=== PATIENT | male | born 1995 | race Caucasian/White ===

== ENCOUNTER 2024-12-20 08:29 | Emergency (ER) | payer OTHER, SELFPAY ==
--- NOTE | 2024-12-20 09:14 | W.ED.ABDPA2 ---
HPI - Abdominal Pain General: Chief Complaint: Abdominal Pain Stated Complaint: abdominal pain, nausea Time Seen by Provider: 12/20/24 08:47 History of Present Illness: 29-year-old male presents emergency room with complaints of abdominal pain and nausea. 1 episode of vomiting this morning denies any any hematemesis coffee-ground emesis. He denies any dysuria urgency or frequency has not noticed anything that aggravates or relieves it. Associated Symptoms: Reports nausea; Denies chills, coffee ground emesis, dysuria, fever(s), hematochezia, hematemesis, melena and vomiting Related Data Previous Rx's ?Medication ?Instructions ?Recorded promethazine 25 mg tablet 25 mg PO Q6H PRN nausea and 12/20/24 vomiting #20 tabs Allergies Allergy/AdvReac Type Severity Reaction Status Date / Time amphetamine (From Adderall) Allergy Unknown Verified 12/20/24 09:31 dextroamphetamine (From Allergy Unknown Verified 12/20/24 09:31 Adderall) Review of Systems Const: Denies: fever(s) or chills Card: Denies: chest pain Resp: Denies: dyspnea GI: Reports: abdominal pain and nausea; Denies: vomiting, hematemesis, coffee ground emesis, hematochezia or melena : Denies: dysuria, urinary frequency or urinary urgency Musc: Denies: neck pain or back pain Skin/Breast: Denies: rash Physical Exam Const: GENERAL APPEARANCE: cooperative ORIENTATION/CONSCIOUSNESS: Yes awake, Yes oriented to person, Yes oriented to place and Yes oriented to time HENMT: COMMON NORMALS: normocephalic, atraumatic and hearing grossly normal bilaterally HEAD & SCALP: normocephalic and atraumatic Resp: COMMON NORMALS: normal respiratory effort, No retractions, No use of accessory muscles and clear to auscultation bilaterally AUSCULTATION: clear to auscultation bilaterally Cardio: COMMON NORMALS: regular rate, regular rhythm and No murmurs present (Cardio) RATE: regular rate RHYTHM: regular rhythm GI: COMMON NORMALS: Soft to palpation and No hepatosplenomegaly present AUSCULTATION: Yes normoactive bowel sounds PALPATION: Yes Soft to palpation, No Tenderness to palpation present (GI), No Guarding due to palpation present (GI) and Yes No hepatosplenomegaly present Extremity: COMMON NORMALS: normal to inspection, capillary refill normal, no clubbing, cyanosis or edema, no calf tenderness and no pedal edema Neuro: SENSORIUM/ORIENTATION: Yes oriented to person, Yes oriented to place and Yes oriented to time Skin: COMMON NORMALS: no rashes or lesions noted GENERAL SKIN EXAM: no rashes or lesions noted Course Vital Signs: Vital signs: Vital Signs Temperature 98.2 F 12/20/24 09:23 Pulse Rate 54 L 12/20/24 12:07 Respiratory Rate 18 12/20/24 09:23 Blood Pressure 129/71 12/20/24 12:07 Pulse Oximetry 97 12/20/24 12:07 Oxygen Delivery Me thod Room Air 12/20/24 09:23 MDM - Abdominal Pain Medical Decision Making CT laboratory test unremarkable no leukocytosis abdominal exam benign. Discussed results with patient discharged with antiemetics. GlucoDock 24 to 48 hours advance as tolerated Medical Records I reviewed the patient's medical records. Lab Data I reviewed the patient's lab results. 12/20/24 09:25 12/20/24 09:25 Labs/Radiology: Radiology Impressions Abdomen/Pelvis CT 12/20/24 10:34 IMPRESSION: No acute findings. Laboratory Results WBC 8.25 10^3/uL (3.29-11.43) 12/20/24 09:25 RBC 5.82 10^6/uL (3.85-5.65) H 12/20/24 09:25 Hgb 16.70 g/dL (11.27-16.99) 12/20/24 09:25 Hct 49.8 % (37-53) 12/20/24 09:25 MCV 85.6 fl (82-101) 12/20/24 09:25 MCH 28.7 pg (27-33) 12/20/24 09: MCHC 33.5 g/dL (30-55) 12/20/24: RDW 12.9 % (12.1-15.1) 12/20/24 09:25 Plt Count 225 10^3/cmm (157-399) 12/20/24 09:25 MPV 10.4 fL (7.4-10.4) 12/20/24 09:25 Neut % (Auto) 71.9 % 12/20/24 09:25 Lymph % (Auto) 18.5 % 12/20/24 09:25 [place] % (Auto) 6.3 % 12/20/24 09:25 Eos % (Auto) 2.5 % 12/20/24:25 Baso % (Auto) 0.7 % 12/20/24:25 Neut # (Auto) 5.92 10^3/uL (1.8-7.7) 12/20/24:25 Lymph # (Auto) 1.5 10^3/uL (0.8-4.8) 12/20/24:25 [place] # (Auto) 0.5 10^3/uL (0.2-0.9) 12/20/24: Eos # (Auto) 0.2 10^3/uL (0.0-0.8) 12/20/24: Baso # (Auto) 0.1 10^3/uL (0.0-0.1) 12/20/24: Nucleated RBC % (auto) 0 % 12/20/24: Nucleated RBCs # 0.0 /100WBC 12/20/24 09:25 Sodium 141 mmol/L (136-145) 12/20/24 09:25 Potassium 4.2 mmol/L (3.5-5.1) 12/20/24:25 Chloride 103 mmol/L (98-107) 12/20/24 09:25 Carbon Dioxide 26 mmol/L (22-29) 12/20/24 09:25 Anion Gap 16.2 (5-19) 12/20/24:25 BUN 14 mg/dL (6-20) 12/20/24 09:25 Creatinine 0.9 mg/dL (0.7-1.2) 12/20/24 09:25 GFR Calculation 98.4 mL/min (90-130) 12/20/24:25 Glucose 98 mg/dL (65-115) 12/20/24:25 Calculated Osmolality 292 mOsm/kg (285-295) 12/20/24:25 Calcium 9.6 mg/dL (8.5-10.5) 12/20/24 09:25 Total Bilirubin 0.4 mg/dL (0.15-1.2) 12/20/24:25 AST 19 U/L (0-40) 12/20/24 09:25 ALT 18 U/L (0-41) 12/20/24 09:25 Alkaline Phosphatase 97 U/L (40-130) 12/20/24 09:25 Total Protein 7.4 g/dL (6.6-8.7) 12/20/24 09:25 Albumin 4.2 g/dL (3.5-5.2) 12/20/24 09: Globulin 3.2 g/dL (1.3-4.6) 12/20/24 09:25 Lipase 32 U/L (13-60) 12/20/24 09:25 Urine Color Dark yellow (Yellow) A 12/20/24 09: Urine Appearance Cloudy (CLEAR) A 12/20/24 09: Urine pH 5.5 (5-7) 12/20/24 09:33 Ur Specific [place] 1.027 (1.005-1.030) 12/20/24 09:33 Urine Protein Trace (Negative) A 12/20/24 09:33 Urine Glucose (UA) Negative (Normal) 12/20/24 09:33 Urine Ketones Trace (Negative) 12/20/24 09:33 Urine Blood Negative (Negative) 12/20/24 09:33 Urine Nitrate Negative (Negative) 12/20/24 09:33 Urine Bilirubin Negative (Negative) 12/20/24 09:33 Urine Urobilinogen 1.0 mg/dL (Negative) 12/20/24 09:33 Ur Leukocyte Esterase Negative (Negative) 12/20/24 09:33 Urine RBC 0-2 /hpf (0-2) 12/20/24 09:33 Urine WBC 0-5 /hpf (0-5) 12/20/24 09:33 Ur Squamous Epith Cells 0-5 /hpf (0-5) 12/20/24 09:33 Amorphous Sediment Not Reportable 12/20/24 09: Urine Bacteria None seen /hpf (NONE) 12/20/24 09: Hyaline Casts 4.95 /lpf 12/20/24 09:33 All radiology interpretation(s) finalized by discharge Discharge Plan Discharge Patient Disposition: Home Clinical Impression: Gastroenteritis Condition: Stable Prescriptions: New promethazine 25 mg tablet 25 mg PO Q6H PRN (Reason: nausea and vomiting) Qty: 20 0RF Discharge Orders: Discharge ED (Routine); Ordered 12/20/24 Ordered By: Sebastian Benson Discharge Diet: Clear Liquid Discharge Activity: Increase activity as tolerated Patient Instructions: Clear Liquid Diet (ED), Gastroenteritis (ED), Opioid Safety, Pain Management Activity Restrictions/Additional Instructions: Thank you for choosing [facility] for your healthcare needs today. It is very important that you follow up as instructed or that you return to the Emergency Department should you have concerns or if your condition changes or worsens in any way. You are seen emergency room for abdominal pain. Your white count was normal laboratory test unremarkable CT of abdomen unremarkable. Suspect you have gastroenteritis recommend that you follow a clear liquid diet for the next 24 to 48 hours and advance as tolerated you are also given promethazine to use as needed. Stand Alone Forms: Work/School Release Print Language: Uzbek Coding Level of Care Code ED Director Of Field Service for Leanne Briggs
[2024-12-20 09:23] VITALS: BP 126/76; PULSE 59; RESP 18; TEMP 36.8; O2SAT 98; BMI 20.9
[2024-12-20] MEDS: sodium chloride 0.9% 1,000 ML 999 ML IV (09:32)
[2024-12-20 09:33] LABS: Basophils # 0.1 10^3/uL (0.0-0.1); Basophils % 0.7 %; Eosinophils # 0.2 10^3/uL (0.0-0.8); Eosinophils % 2.5 %; Hematocrit 49.8 % (37-53); Lymphocytes # 1.5 10^3/uL (0.8-4.8); Lymphocytes % 18.5 %; Mean Corpuscular HGB Conc 33.5 g/dL (30-55); Mean Corpuscular Hemoglobin 28.7 pg (27-33); Mean Corpuscular Volume 85.6 fl (82-101); Mean Platelet Volume 10.4 fL (7.4-10.4); Monocytes # 0.5 10^3/uL (0.2-0.9); Monocytes % 6.3 %; Neutrophils # 5.92 10^3/uL (1.8-7.7); Neutrophils % 71.9 %; Nucleated Red Blood Cells % 0 %; Platelet Count 225 10^3/cmm (157-399); Red Blood Count 5.82 10^6/uL (3.85-5.65); Red Cell Distribution Width 12.9 % (12.1-15.1); White Blood Count 8.25 10^3/uL (3.29-11.43)
[2024-12-20] MEDS: ondansetron 2 mg/ML SDV 2 mL 4 MG IVP (09:36)
[2024-12-20 09:48] LABS: Bilirubin Urine Negative (Negative); Blood Urine Negative (Negative); Glucose Urine UA Negative (Normal); Ketones Urine Trace (Negative); Leukocyte Esterase Urine Negative (Negative); Nitrate Urine Negative (Negative); Protein Urine Trace (Negative); Specific Gravity, Urine 1.027 (1.005-1.030); Urine Appearance Cloudy (CLEAR); Urine Color Dark Yellow (Yellow); pH Urine 5.5 (5-7)
[2024-12-20 09:53] LABS: Alanine Aminotransferase 18 U/L (0-41); Albumin Level 4.2 g/dL (3.5-5.2); Alkaline Phosphatase 97 U/L (40-130); Anion Gap 16.2 (5-19); Aspartate Amino Transferase 19 U/L (0-40); Blood Urea Nitrogen 14 mg/dL (6-20); Calcium 9.6 mg/dL (8.5-10.5); Carbon Dioxide 26 mmol/L (22-29); Chloride 103 mmol/L (98-107); Creatinine Clr Calc Pharmacy 104.0661; Globulin 3.2 g/dL (1.3-4.6); Glomerular Filtration Rate 98.4 mL/min (90-130); Glucose 98 mg/dL (65-115); Lipase 32 U/L (13-60); Osmolality Calculated 292 mOsm/kg (285-295); Potassium 4.2 mmol/L (3.5-5.1); Sodium 141 mmol/L (136-145); Total Bilirubin 0.4 mg/dL (0.15-1.2); Total Protein 7.4 g/dL (6.6-8.7)
[2024-12-20 09:53] LABS: Add Urine Microscopic? YES; Bacteria Urine None Seen /hpf; Hyaline Casts Urine 4.95 /lpf; RBC Urine 0-2 /hpf (0-2); Squamous Epithelial Cell Urine 0-5 /hpf (0-5); Universal Test for UA Present (0); WBC Urine 0-5 /hpf (0-5)
--- NOTE | 2024-12-20 10:34 | CTR_ITS ---
PROCEDURE INFORMATION: Exam: CT Abdomen And Pelvis With Contrast Exam date and time: 12/20/2024 10:43 AM Age: 29 years old Clinical indication: Nausea and vomiting; Abdominal pain; Generalized; Additional info: Abd pain TECHNIQUE: Imaging protocol: Computed tomography of the abdomen and pelvis with contrast. Radiation optimization: All CT scans at this facility use at least one of these dose optimization techniques: automated exposure control; mA and/or kV adjustment per patient size (includes targeted exams where dose is matched to clinical indication); or iterative reconstruction. Contrast material: OMNI 350; Contrast volume: 100 ml; Contrast route: INTRAVENOUS (IV); COMPARISON: No relevant prior studies available. RADIATION DOSE METRICS: Total DLP (mGy-cm): 336.99 FINDINGS: Liver: Normal. No mass. Gallbladder and biliary ducts: Normal. No calcified stones. No ductal dilation. Pancreas: Normal. No ductal dilation. Spleen: Normal. No splenomegaly. Adrenal glands: Normal. No mass. Kidneys and ureters: Normal. No hydronephrosis. Stomach and bowel: Unremarkable. No obstruction. No mucosal thickening. Appendix: No evidence of appendicitis. Intraperitoneal space: Unremarkable. No free air. No significant fluid collection. Vasculature: Unremarkable. No abdominal aortic aneurysm. Lymph nodes: Unremarkable. No enlarged lymph nodes. Urinary bladder: Unremarkable as visualized. Reproductive: Unremarkable as visualized. Bones/joints: Unremarkable. No acute fracture. Soft tissues: Unremarkable. CT/CT abdomen pelvis w con* [id number] IMPRESSION: No acute findings.
[2024-12-20] MEDS: iohexol 350 mg/mL 500 mL Btl (per mL) IV (10:44)
[2024-12-20 12:07] VITALS: BP 129/71; PULSE 54; O2SAT 97
== END 2024-12-20 12:08 | disposition home or self-care (01) ==
PROVIDERS: Emergency Provider Family Medicine
DX: K52.9 Noninfective gastroenteritis and colitis, unspecified (principal)
CPT/HCPCS: 36415; 74177; 80053; 81001; 83690; 85025; 96361; 96374; 99285; J2405; J7030

== ENCOUNTER 2025-06-11 12:15 | Emergency (ER) | payer OTHER, SELFPAY ==
[2025-06-11 12:20] VITALS: BP 108/70; PULSE 49; RESP 20; TEMP 36.5; O2SAT 99
--- NOTE | 2025-06-11 12:37 | XR_ITS ---
WS: [email or web address] Exam: XR knee LT 3V* [id number] Date/Time of Exam: 06/11/2025 12:37 PM Reason For Exam: trauma No fracture. The joint compartments are well-maintained. Normal soft tissues. No joint effusion. XR/XR knee LT 3V* [id number] IMPRESSION: 1. Negative LEFT knee.
--- NOTE | 2025-06-11 12:37 | XR_ITS ---
WS: [email or web address] Exam: XR ankle LT min 3V* [id number] Date/Time of Exam: 06/11/2025 12:37 PM Reason For Exam: trauma No fracture. The ankle mortise is equidistant. Normal soft tissues. XR/XR ankle LT min 3V* [id number] IMPRESSION: 1. Normal LEFT ankle.
--- NOTE | 2025-06-11 12:37 | XR_ITS ---
WS: [email or web address] Exam: XR tibia fibula LT 2V [id number] Date/Time of Exam: 06/11/2025 12:37 PM Reason For Exam: trauma No fracture noted. Normal soft tissues. Articular relationships at the knee and ankle appear normal. XR/XR tibia fibula LT 2V [id number] IMPRESSION: 1. Normal LEFT tibia and fibula.
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
[2025-06-11 12:49] LABS: Hematocrit 46.6 % (37-53); Hemoglobin 15.50 g/dL (11.27-16.99); Mean Corpuscular HGB Conc 33.3 g/dL (30-55); Mean Corpuscular Hemoglobin 28.9 pg (27-33); Mean Corpuscular Volume 86.8 fl (82-101); Nucleated Red Blood Cells % 0 %; Platelet Count 266 10^3/cmm (157-399); Red Blood Count 5.37 10^6/uL (3.85-5.65); White Blood Count 9.34 10^3/uL (3.29-11.43)
[2025-06-11 13:12] LABS: Alanine Aminotransferase 16 U/L (0-41); Albumin Level 4.6 g/dL (3.5-5.2); Alkaline Phosphatase 92 U/L (40-130); Anion Gap 15.8 (5-19); Aspartate Amino Transferase 16 U/L (0-40); Blood Urea Nitrogen 18 mg/dL (6-20); Calcium 9.7 mg/dL (8.5-10.5); Carbon Dioxide 27 mmol/L (22-29); Chloride 103 mmol/L (98-107); Globulin 2.7 g/dL (1.3-4.6); Glucose 111 mg/dL (65-115); Lipase 18 U/L (13-60); Osmolality Calculated 297 mOsm/kg (285-295); Potassium 3.8 mmol/L (3.5-5.1); Sodium 142 mmol/L (136-145); Total Protein 7.3 g/dL (6.6-8.7)
== END 2025-06-11 14:32 | disposition home or self-care (01) ==
PROVIDERS: Emergency Provider Family Medicine; PCP Family Medicine
DX: M79.605 Pain in left leg (principal); F17.210 Nicotine dependence, cigarettes, uncomplicated; V13.4XXA Pedal cycle driver injured in collision with car, pick-up truck or van in traffic accident, initial encounter
CPT/HCPCS: 36415; 73562; 73590; 73610; 80053; 83690; 85025; 96372; 99284; J1885